=== PATIENT | female | born 1980 | race Caucasian/White ===

== ENCOUNTER 2017-12-15 09:38 | Emergency (ER) | payer SELFPAY ==
[~2017-12-15] VITALS: Ht 167.6 cm; Wt 99.8 kg
[2017-12-15 09:40] VITALS: BP 151/98
[2017-12-15] MEDS ORDERED: METHADONE HCL 10 MG TABLET PO STA (10:16)
== END 2017-12-15 10:37 | disposition home or self-care (01) ==
LOC: ER 09:41
DX: Z76.0 Encounter for issue of repeat prescription (principal); F17.200 Nicotine dependence, unspecified, uncomplicated; F41.9 Anxiety disorder, unspecified; Z88.0 Allergy status to penicillin; Z88.8 Allergy status to other drugs, medicaments and biological substances
CPT/HCPCS: 99282; A4606; Z7610

== ENCOUNTER 2017-12-16 07:59 | Emergency (ER) | payer SELFPAY ==
[~2017-12-16] VITALS: Ht 167.6 cm; Wt 102.1 kg
[2017-12-16 08:01] VITALS: BP 144/106
[2017-12-16] MEDS ORDERED: METHADONE HCL 10 MG TABLET PO SCH (09:00)
== END 2017-12-16 08:35 | disposition home or self-care (01) ==
LOC: ER 08:00
DX: J45.909 Unspecified asthma, uncomplicated (principal); F41.9 Anxiety disorder, unspecified; F17.200 Nicotine dependence, unspecified, uncomplicated; Z88.0 Allergy status to penicillin; Z88.8 Allergy status to other drugs, medicaments and biological substances
CPT/HCPCS: 99283; A4606; Z7610